=== PATIENT | female | born 1945 | race Caucasian/White ===

== ENCOUNTER 2017-08-20 09:07 | Outpatient (CLI) | payer MEDICARE, OTHER ==
[2017-08-20 10:06] LABS: Hemoglobin 14.4 g/dL (12.0-16.0); Mean Corpuscular HGB CONC 33.4 g/dL (32.0-36.0); Mean Corpuscular Hemoglobin 33.4 pg (27.0-31.0); Mean Platelet Volume 7.7 fL (7.4-10.4); Platelet Count 195 thou/uL (130-400); RBC Distribution Width 12.6 % (11.5-14.5); Red Blood Cell (RBC) Count 4.32 mill/uL (4.20-5.40); White Blood Cell (WBC) Count 8.9 thou/uL (4.8-10.8)
== END 2017-08-20 09:08 | disposition home or self-care (01) ==
LOC: LABBT 09:07
PROVIDERS: ATTEND Obstetrics & Gynecology
DX: Z01.812 Encounter for preprocedural laboratory examination (principal); N95.0 Postmenopausal bleeding
CPT/HCPCS: 85027; 86850; 86900; 86901

== ENCOUNTER 2017-08-21 07:57 | Day surgery (SDC) | payer MEDICARE, OTHER ==
[2017-08-20 09:30] VITALS: BMI 41.7
--- NOTE | 2017-08-20 10:37 | HP ---
Ms. Holcomb is scheduled for outpatient surgery on 08/21/2017. HISTORY OF PRESENT ILLNESS: Ms. Holcomb is a 72-year-old white female who has been having some curren t postmenopausal bleeding. She had ultrasound evaluation showing the lining 20 mm. Endometrial biop sy prior to this that showed benign strips and atrophy. Her Pap smear was also negative. She has no continued bleeding, she was treated with Provera 0 mg b.i.d. for 30 days. The recent followup ultra sound after the Provera treatment again showed thickening of the lining at 20 mm suggestive of possib le polyp. PAST MEDICAL HISTORY: Chronic hypertension, obesity and diabetes. CURRENT MEDICATIONS: Gabapentin 300 mg oral at bedtime, glipizide 10 mg, pravastatin 40 mg daily, ra mipril 5 mg every day. ALLERGIES: No known drug allergies. SOCIAL HISTORY: Nonsmoker, nondrinker. FAMILY HISTORY: Noncontributory. PHYSICAL EXAMINATION: VITAL SIGNS: Blood pressure is 120/80, pulse 77, respirations 18, height 64 inches, weight 241 pound s with BMI of 41. HEENT: Within normal limits. CHEST: Clear to auscultation. HEART: Regular rate and rhythm. S1, S2 heart sounds, no murmurs, rubs or gallops. ABDOMEN: Soft, nontender, nondistended with no palpable masses. PELVIC: Vulva and vagina had no lesions. Cervix showed no lesions. Uterus is small, nontender. Ad nexa nontender with no masses. ASSESSMENT: This is a 72-year-old white female with postmenopausal bleeding, thickened endometrial l ining 20 mm with previous endometrial biopsy showing atrophy. The patient has done treatment with Pr overa 10 mg b.i.d. for 30 days with no decrease in her endometrial thickness. Suspect possible polyp also rule out endometrial carcinoma. PLAN: Proceed with diagnostic hysteroscopy with [employer] system and D&C and possible resection of po lyp if encountered. Surgery is set for 08/21/2017.
[2017-08-21] MEDS ORDERED: Fentanyl 100 MCG/2 ML VIAL ONE ×2 (09:05)
[2017-08-21] MEDS ORDERED: CEFAZOLIN/Water 2 GM/20 ML SYRINGE ONE (10:13)
[2017-08-21] MEDS ORDERED: Ondansetron HCl/PF 4 MG/2 ML Vial ONE (16:12)
[2017-08-21] MEDS ORDERED: Propofol 200 MG/20 ML VIAL ONE (16:12)
[2017-08-21] MEDS ORDERED: Metoclopramide HCl 10 MG/2 ML VIAL ONE (16:12)
[2017-08-21] MEDS ORDERED: Lidocaine 1% PF 5 ML VIAL ONE (16:12)
[2017-08-21] MEDS ORDERED: Ketorolac Tromethamine 30 MG/ML VIAL ONE (16:12)
[2017-08-21] MEDS ORDERED: Dexamethasone 20 MG/5 ML VIAL ONE (16:12)
--- NOTE | 2017-08-21 16:21 | OP ---
DATE OF PROCEDURE: 08/21/2017 PREOPERATIVE DIAGNOSES: 1. A 72-year-old white female with postmenopausal bleeding. 2. Thickened endometrial lining noted on transvaginal ultrasound. POSTOPERATIVE DIAGNOSES: 1. A 72-year-old white female with postmenopausal bleeding. 2. Thickened endometrial lining noted on transvaginal ultrasound. 3. Uterine synechiae noted. PROCEDURE PERFORMED: Diagnostic hysteroscopy with [employer] system and D and C. SURGEON: Trudi Lima M.D. ANESTHESIA: General with LMA. PATHOLOGY: Endometrial curettings. FINDINGS: 1. Normal appearing endocervical canal and endometrial cavity noted to have atrophic endometrium wit h a fibrous synechiae noted in the midline upper uterine fundus region. There was no evidence of any polyps or exophytic growth from the endometrial cavity noted. 2. Fluid deficit from the hysteroscopy with 110 mL of normal saline. DISPOSITION: To the recovery room stable and plan for discharge home later today. DESCRIPTION OF OPERATIVE PROCEDURE: The patient previously received informed consent in regards to angela hurt. She was taken back to the operating room where she received a general anesthesia with LMA. She was placed in dorsal lithotomy position and prepped and draped in usual sterile fashion. In and out catheterization of the bladder was performed during the prep process. A sidearm speculum was justin devyn in the vagina. Anterior lip of cervix grasped with single-tooth tenaculum. The uterus sounded t o 8 cm and serial dilatation of the cervix with Winn dilators up to a size 16 Winn dilator was zavala ied out. The 5 mm [employer] system hysteroscope was assembled, the hysteroscope was introduced throug h the cervix into the endometrial cavity and the uterine cavity was distended with the previously men tioned findings. Then, a sharp curettage of the cavity was carried out in circumferential pattern an d this tissue was sent for final pathologic diagnosis. The surgery was terminated. Tenaculum was re moved and hemostasis from the cervix was noted with application of sponge sticks. Sponge stick was r emoved. The patient was awakened from anesthesia and transferred to the recovery room in stable cond ition.
== END 2017-08-21 12:50 | disposition home or self-care (01) ==
LOC: SDC 07:57
PROVIDERS: ATTEND Obstetrics & Gynecology
PROC: 0UDB8ZX Extraction of Endometrium, Via Natural or Artificial Opening Endoscopic, Diagnostic (ICD-10-PCS; principal; 2017-08-21)
DX: N95.0 Postmenopausal bleeding (principal); N85.6 Intrauterine synechiae; I10 Essential (primary) hypertension; E11.9 Type 2 diabetes mellitus without complications; E66.9 Obesity, unspecified; Z68.41 Body mass index [BMI] 40.0-44.9, adult; Z79.84 Long term (current) use of oral hypoglycemic drugs; Z79.899 Other long term (current) drug therapy
CPT/HCPCS: 88305; J0131; J1100; J1885; J2001; J2405; J2704; J2765; J3010

== ENCOUNTER 2021-11-02 15:33 | Emergency (ER) | payer MEDICARE, OTHER ==
[2021-11-02] MEDS ORDERED: Xylocaine 1% w/ Epi 1:100K 10 ML VIAL ONE (16:05)
[2021-11-02] MEDS ORDERED: Boostrix 0.5 ML (Tdap) VIAL ONE (16:13)
== END 2021-11-02 17:45 | disposition home or self-care (01) ==
LOC: ERS 15:33
DX: S01.01XA Laceration without foreign body of scalp, initial encounter (principal); I10 Essential (primary) hypertension; E78.00 Pure hypercholesterolemia, unspecified; E11.9 Type 2 diabetes mellitus without complications; Z79.899 Other long term (current) drug therapy; W17.89XA Other fall from one level to another, initial encounter
CPT/HCPCS: 12002; 70450; 90471; 90715

== ENCOUNTER 2021-11-09 10:09 | Emergency (ER) | payer MEDICARE, OTHER | END 2021-11-09 11:25 | disposition home or self-care (01) | LOC: ERS 10:09 | DX: S01.01XD Laceration without foreign body of scalp, subsequent encounter (principal); I10 Essential (primary) hypertension; E11.9 Type 2 diabetes mellitus without complications; E78.00 Pure hypercholesterolemia, unspecified; W01.198D Fall on same level from slipping, tripping and stumbling with subsequent striking against other object, subsequent encounter; Z79.899 Other long term (current) drug therapy ==